=== PATIENT | female | born 2000 | race Caucasian/White ===

== ENCOUNTER 2022-07-20 20:48 | Emergency (ER) | payer SELFPAY ==
[2022-07-20 21:03] VITALS: BP 103/65; PULSE 73; RESP 19; TEMP 98.6; BMI 39.0
[2022-07-20 22:48] LABS: BASO % 0.3 % (0-2.0); EOS % 0.9 % (0-4.5); HEMATOCRIT 33.4 % (32.4-45.2); HEMOGLOBIN 10.9 GM/dL (10.7-15.3); LYMPH % 33.7 % (8-40); MCH 26.3 pg (25.7-33.7); MCHC 32.8 g/dl (32.0-36.0); MEAN CELL VOLUME 80.2 fl (80-96); MEAN PLT VOLUME 7.7 fl (7.5-11.1); MONO % 5.9 % (3.8-10.2); NEUT % 59.2 % (42.8-82.8); PLATELET COUNT 313 10^3/uL (134-434); RBC 4.16 M/mm3 (3.60-5.2); RDW 16.3 % (11.6-15.6); WHITE BLOOD COUNT 11.1 K/mm3 (4.0-10.0)
[2022-07-20 23:09] LABS: CALCIUM 9.1 mg/dL (8.5-10.1)
[2022-07-20 23:10] LABS: ALBUMIN 4.4 g/dl (3.4-5.0); BLOOD UREA NITROGEN 6.8 mg/dL (7-18)
[2022-07-20 23:13] LABS: CREATININE 0.5 mg/dL (0.55-1.3)
[2022-07-20 23:15] LABS: BILIRUBIN,TOTAL 0.3 mg/dL (0.2-1); TOT PROT 8.7 g/dl (6.4-8.2)
[2022-07-21 01:02] LABS: EPI CELLS 18 /uL (0-25.1); HYALINE CASTS 1 /uL (0-3.1); PH,URINE 6.5 (5.0-8.0); URINE APPEARANCE CLEAR; URINE BACTERIA 388 /uL (0-1359); URINE BILIRUBIN NEGATIVE (NEGATIVE); URINE COLOR YELLOW; URINE GLUCOSE (UA) NEGATIVE (NEGATIVE); URINE KETONE TRACE (NEGATIVE); URINE LEUK ESTERASE NEGATIVE (NEGATIVE); URINE NITRITE NEGATIVE (NEGATIVE); URINE PROTEIN NEGATIVE (NEGATIVE); URINE RBC 4 /uL (0-23.9); URINE WBC 9 /uL (0-25.8)
[2022-07-21] MEDS ORDERED: CEPHALEXIN MONOHYDRATE 500 MG CAPSULE (UD) PO ONE (01:14)
[2022-07-21] MEDS ORDERED: CEPHALEXIN MONOHYDRATE 500 MG CAPSULE (UD) ONE (01:32)
== END 2022-07-21 01:45 | disposition home or self-care (01) ==
LOC: JER 20:48
DX: O26.851 Spotting complicating pregnancy, first trimester (principal); Z3A.01 Less than 8 weeks gestation of pregnancy
CPT/HCPCS: 76817-TC; 80053; 81003; 84702; 85025; 86850; 86900; 86901; 87086; 99284-25

== ENCOUNTER 2022-07-23 10:38 | Emergency (ER) | payer SELFPAY ==
[2022-07-23 10:52] VITALS: BP 94/61; PULSE 68; RESP 16; TEMP 98.6; BMI 26.4
== END 2022-07-23 13:48 | disposition home or self-care (01) ==
LOC: JER 10:38
DX: O03.9 Complete or unspecified spontaneous abortion without complication (principal); Z3A.00 Weeks of gestation of pregnancy not specified
CPT/HCPCS: 36415; 84702; 86850; 86900; 86901; 99283-25

== ENCOUNTER 2023-12-24 07:50 | Inpatient (IN) | payer OTHER ==
[2023-12-24] MEDS: LACTATED RINGERS SOLUTION 1,000 ML IV SCH (08:15)
[2023-12-24 08:56] VITALS: BMI 24.6
[2023-12-24] MEDS ORDERED: AMPICILLIN SODIUM 2 GM VIAL ONE (08:57)
[2023-12-24] MEDS ORDERED: SODIUM CHLORIDE 100 ML IVPB ONE (08:58)
[2023-12-24] MEDS: AMPICILLIN - 2 GM in SODIUM CHLORIDE 100 ML IVPB ONE (09:10)
[2023-12-24 10:05] LABS: BASO % 0.4 % (0-2.0); EOS % 0.1 % (0-4.5); HEMOGLOBIN 13.2 GM/dL (10.7-15.3); MCH 29.9 pg (25.7-33.7); MCHC 33.8 g/dl (32.0-36.0); MEAN CELL VOLUME 88.4 fl (80-96); MEAN PLT VOLUME 8.4 fl (7.5-11.1); NEUT % 85.5 % (42.8-82.8); PLATELET COUNT 268 10^3/uL (134-434); RBC 4.41 M/mm3 (3.60-5.2); RDW 23.9 % (11.6-15.6); WHITE BLOOD COUNT 11.6 K/mm3 (4.0-10.0)
[2023-12-24 10:17] LABS: INR 0.89 (0.83-1.09); PROTHROMBIN TIME (PATIENT) 10.3 SEC (9.7-13.0)
[2023-12-24 10:19] LABS: ACTIVATED PTT 28.7 SECONDS (25.2-36.5)
[2023-12-24 10:27] LABS: POTASSIUM 3.8 mmol/L (3.5-5.1)
[2023-12-24 10:28] LABS: CALCIUM 8.6 mg/dL (8.5-10.1)
[2023-12-24 10:29] LABS: BLOOD UREA NITROGEN 8.2 mg/dL (7-18)
[2023-12-24 10:32] LABS: CREATININE 0.5 mg/dL (0.55-1.3)
[2023-12-24] MEDS ORDERED: OXYTOCIN 20 UNITS in 0.9% NS 20 UNIT/1,000 ML INFUS.BAG IV ONE (10:56)
[2023-12-24] MEDS ORDERED: LIDOCAINE HCL 1% PRESERVATIVE FREE - 30ML VIAL ONE (10:56)
[2023-12-24 11:33] LABS: HIV INTERPRETATION NEGATIVE (NEGATIVE)
[2023-12-24] MEDS: OXYTOCIN 20 UNITS in 0.9% NS 20 UNIT/1,000 ML INFUS.BAG IV SCH (11:52)
[2023-12-24 12:14] LABS: ANISOCYTOSIS 3+; MACROCYTOSIS 0
[2023-12-24] MEDS ORDERED: ACETAMINOPHEN 325 MG TABLET (FP) PO PRN (12:20)
[2023-12-24] MEDS ORDERED: BENZOCAINE 20% 57 GM BOTTLE TP PRN (12:20)
[2023-12-24] MEDS ORDERED: BISACODYL 10 MG SUPP.RECT RC PRN (12:20)
[2023-12-24] MEDS ORDERED: METHYLERGONOVINE MALEATE 0.2 MG/1 ML AMP IM PRN (12:20)
[2023-12-24] MEDS ORDERED: WITCH HAZEL 50% (TUCKS) 40 PAD/JAR PAD TP PRN (12:20)
[2023-12-24] MEDS ORDERED: oxyCODONE HCL 5 MG TABLET PO PRN (12:20)
[2023-12-24] MEDS ORDERED: BENZOCAINE 28 GM HEMORRHOIDAL OINTMENT TP PRN (12:20)
[2023-12-24] MEDS: AMPICILLIN - 1 GM in SODIUM CHLORIDE 100 ML IVPB SCH (12:42)
[2023-12-25 08:35] LABS: BASO % 0.1 % (0-2.0); EOS % 0.2 % (0-4.5); HEMOGLOBIN 12.5 GM/dL (10.7-15.3); LYMPH % 21.9 % (8-40); MCH 30.2 pg (25.7-33.7); MCHC 33.7 g/dl (32.0-36.0); MEAN CELL VOLUME 89.6 fl (80-96); MEAN PLT VOLUME 9.1 fl (7.5-11.1); MONO % 5.5 % (3.8-10.2); NEUT % 72.3 % (42.8-82.8); PLATELET COUNT 254 10^3/uL (134-434); RBC 4.13 M/mm3 (3.60-5.2); RDW 25.2 % (11.6-15.6); WHITE BLOOD COUNT 13.9 K/mm3 (4.0-10.0)
[2023-12-25] MEDS: IBUPROFEN 600 MG TABLET (FP) PO PRN (20:54)
[2023-12-25] MEDS ORDERED: SENNOSIDES/DOCUSATE COMBO (SENNA PLUS) TABLET (UD) PO PRN (22:00)
[2023-12-26 07:20] LABS: POC NITRAZINE NEG
[2023-12-26 11:37] VITALS: BP 119/86; PULSE 79; RESP 18; TEMP 97.2
== END 2023-12-26 14:45 | disposition home or self-care (01) | DRG 560 ==
LOC: JDEL 07:50 → JLDR 08:12 → J3W 14:52
PROVIDERS: ADMIT Specialist; ATTEND Specialist
PROC: 10E0XZZ Delivery of Products of Conception, External Approach (ICD-10-PCS; principal; 2023-12-23)
PROC: 0W8NXZZ Division of Female Perineum, External Approach (ICD-10-PCS; 2023-12-23)
DX: O80 Encounter for full-term uncomplicated delivery (principal); Z3A.37 37 weeks gestation of pregnancy; Z37.0 Single live birth
CPT/HCPCS: 36415; 59025; 80048; 83986-QW; 85025; 85610; 85730; 86762; 86780; 86850; 86900; 86901; 87340; 87389